=== PATIENT | female | born 1965 | race Caucasian/White ===

== ENCOUNTER 2017-02-18 21:06 | Emergency (ER) | payer SELFPAY ==
[2017-02-18 22:16] LABS: #Basophils 0.1 thou/uL (0.0-0.2); #Eosinphils 0.2 thou/uL (0.0-0.7); #Lymphocytes 2.4 thou/uL (1.20-3.40); #Monocytes 0.5 thou/uL (0.11-0.59); #Neutrophils 5.6 thou/uL (1.40-6.50); %Basophils 0.9 % (0.0-1.0); %Eosinophils 2.3 % (0.0-10.0); %Lymphocytes 27.6 % (21.0-51.0); %Monocytes 5.9 % (0.0-10.0); %Neutrophils 63.4 % (42.0-75.0); Hemoglobin 13.5 g/dL (12.0-16.0); Mean Corpuscular HGB CONC 33.3 g/dL (32.0-36.0); Mean Corpuscular Hemoglobin 31.4 pg (27.0-31.0); Mean Corpuscular Volume 94.4 fl (81.0-99.0); Mean Platelet Volume 7.4 fL (7.4-10.4); Platelet Count 240 thou/uL (130-400); RBC Distribution Width 11.5 % (11.5-14.5); Red Blood Cell (RBC) Count 4.28 mill/uL (4.20-5.40); White Blood Cell (WBC) Count 8.8 thou/uL (4.8-10.8)
[2017-02-18 22:42] LABS: ALT (SGPT) 16 U/L (8-55); AST (SGOT) 12 U/L (5-34); Albumin 3.9 g/dL (3.5-5.0); Alkaline Phosphatase 80 U/L (40-150); Anion Gap 10 mmol/L (10-20); BUN (Urea Nitrogen) 17 mg/dL (7.0-18.7); Bilirubin, Total 0.4 mg/dL (0.2-1.2); Calc. Creatinine Clearance 0 mL/min (70-130); Calcium 9.8 mg/dL (7.8-10.44); Carbon Dioxide 30 mmol/L (22-29); Chloride 107 mmol/L (98-107); Estimated GFR-MDRD 79; Glucose 105 mg/dL (70-105); Lipase 27 U/L (8-78); Potassium 4.1 mmol/L (3.5-5.1); Protein, Total 6.9 g/dL (6.0-8.3); Sodium 143 mmol/L (136-145)
[2017-02-18 22:45] LABS: CKMB 1.4 ng/mL (0-6.6); Troponin I Less than 0.010 ng/mL (< 0.028)
--- NOTE | 2017-02-18 23:12 | RAD ---
PA AND LATERAL CHEST: History: Cough. FINDINGS: Heart size is normal. The lungs are expanded without focal areas of consolidation, pneumothorax or pl eural effusions. No acute osseous abnormality is seen. IMPRESSION: No radiographic evidence of acute cardiopulmonary process. POS: [facility]
--- NOTE | 2017-02-18 23:18 | CT ---
CT BRAIN WITHOUT CONTRASTS: History: Dizziness, left sided headache, generalized weakness. FINDINGS: No evidence of acute infarct, hemorrhage, midline shift, or abnormal extraaxial fluid collections are seen. Ventricular system is normal and the basilar cisterns are patent. The bony calvarium is intact . The visualized paranasal sinuses and mastoid air cells are well aerated. IMPRESSION: No CT evidence of acute intracranial process. POS: [facility]
[2017-02-19] MEDS ORDERED: Metoclopramide HCl 10 MG/2 ML VIAL ONE (00:37)
[2017-02-19] MEDS ORDERED: diphenhydrAMINE 50 MG/ML VIAL ONE (00:37)
== END 2017-02-19 01:23 | disposition home or self-care (01) ==
LOC: ERS 21:06
DX: H92.03 Otalgia, bilateral (principal); R42 Dizziness and giddiness; R05 Cough; R51 Headache; J45.909 Unspecified asthma, uncomplicated; F31.9 Bipolar disorder, unspecified; Z87.891 Personal history of nicotine dependence
CPT/HCPCS: 70450; 71046; 80053; 82553; 83690; 84484; 85025; 93005; 96361; 96365; 96375; J1200; J2765

== ENCOUNTER 2017-03-30 17:10 | Emergency (ER) | payer SELFPAY ==
--- NOTE | 2017-03-30 20:37 | RAD ---
PORTABLE UPRIGHT FRONTAL CHEST RADIOGRAPH: Date: 03-30-17 Comparison: 02-18-17 History: Flu-like symptoms. FINDINGS: No pneumothorax or pleural fluid. No focal consolidation or alveolar edema. Heart and mediastinal con tours are grossly unremarkable. IMPRESSION: No acute findings. POS: [facility]
== END 2017-03-30 20:39 | disposition home or self-care (01) ==
LOC: ERS 17:10
DX: J20.9 Acute bronchitis, unspecified (principal); E66.9 Obesity, unspecified; J45.909 Unspecified asthma, uncomplicated; F31.9 Bipolar disorder, unspecified; Z87.891 Personal history of nicotine dependence; Z79.899 Other long term (current) drug therapy
CPT/HCPCS: 71045; 87804

== ENCOUNTER 2017-04-04 15:53 | Emergency (ER) | payer SELFPAY ==
[2017-04-04] MEDS ORDERED: Ibuprofen 200 MG TAB ONE (16:17)
[2017-04-04] MEDS ORDERED: Pseudoephedrine HCl 30 MG TAB PO SCH (16:30)
--- NOTE | 2017-04-04 16:45 | RAD ---
PA AND LATERAL VIEWS OF THE CHEST 04/04/17 HISTORY: Cough. FINDINGS: The heart size is normal. The lungs are expanded without focal areas of consolidation, pneumothorax o r pleural effusions. No acute osseous abnormalities are seen. IMPRESSION: No radiographic evidence of acute cardiopulmonary process. POS: [facility]
[2017-04-04] MEDS ORDERED: diphenhydrAMINE 25 MG CAP ONE (16:50)
== END 2017-04-04 17:01 | disposition home or self-care (01) ==
LOC: ERS 15:53
DX: J11.1 Influenza due to unidentified influenza virus with other respiratory manifestations (principal); E66.9 Obesity, unspecified; J45.909 Unspecified asthma, uncomplicated; F31.9 Bipolar disorder, unspecified; Z87.891 Personal history of nicotine dependence; Z79.899 Other long term (current) drug therapy
CPT/HCPCS: 71046; 94640; J7620

== ENCOUNTER 2017-04-11 06:38 | Emergency (ER) | payer SELFPAY ==
[2017-04-11] MEDS ORDERED: Ketorolac Tromethamine 60 MG/2 ML VIAL ONE (08:19)
[2017-04-11] MEDS ORDERED: Acetaminophen 500 MG TAB ONE (09:10)
[2017-04-11 10:22] LABS: Bilirubin Negative (Negative); Blood, Urine Trace (Negative); Clarity CLOUDY (Clear); Glucose, Urine (Dipstick) Negative (Negative); Leukocyte Large (Negative); Nitrite Negative (Negative); Protein, Urine (Dipstick) Negative (Neg-Trace); Specific Gravity, Urine 1.023 (1.002-1.036); Urobilinogen 0.2 mg/dL (0.2-1.0)
[2017-04-11 10:36] LABS: RBC/HPF None Seen HPF (0-3)
[2017-04-11 10:37] LABS: Bacteria/HPF 1+ HPF (None Seen); Hyaline Casts/LPF NONE SEEN LPF (0-3 Hyaline); Squamous Epithelial 0-3 HPF (0-3)
[2017-04-13 01:02] LABS: Chlamydia by PCR Not Detected (NotDetected); GC by PCR Not Detected (NotDetected)
== END 2017-04-11 11:00 | disposition home or self-care (01) ==
LOC: ERS 06:38
DX: A59.01 Trichomonal vulvovaginitis (principal); N39.0 Urinary tract infection, site not specified; E66.9 Obesity, unspecified; J45.909 Unspecified asthma, uncomplicated; F31.9 Bipolar disorder, unspecified; Z87.891 Personal history of nicotine dependence; Z79.51 Long term (current) use of inhaled steroids; Z79.899 Other long term (current) drug therapy
CPT/HCPCS: 81003; 81015; 87081; 87086; 87430; 87480; 87491; 87510; 87591; 87660; 96372; J1885

== ENCOUNTER 2017-04-13 09:34 | Emergency (ER) | payer SELFPAY ==
--- NOTE | 2017-04-13 10:44 | RAD ---
1 VIEW CHEST: Date: 04/13/17 COMPARISON: 03/30/17. HISTORY: Dyspnea and vomiting. FINDINGS: Normal cardiac silhouette. Pulmonary vessels and hilum are normal. No mass. No consolidation. No pneu mothorax or osseous abnormalities. IMPRESSION: No acute cardiopulmonary process. POS: [facility]
[2017-04-13 10:53] LABS: #Eosinphils 0.1 thou/uL (0.0-0.7); #Lymphocytes 1.3 thou/uL (1.20-3.40); #Monocytes 0.4 thou/uL (0.11-0.59); %Basophils 0.1 % (0.0-1.0); %Eosinophils 1.8 % (0.0-10.0); %Lymphocytes 16.5 % (21.0-51.0); %Monocytes 5.6 % (0.0-10.0); Hemoglobin 13.8 g/dL (12.0-16.0); Mean Corpuscular HGB CONC 32.2 g/dL (32.0-36.0); Mean Corpuscular Hemoglobin 30.4 pg (27.0-31.0); Mean Corpuscular Volume 94.5 fl (81.0-99.0); Mean Platelet Volume 7.2 fL (7.4-10.4); Platelet Count 261 thou/uL (130-400); RBC Distribution Width 11.9 % (11.5-14.5); Red Blood Cell (RBC) Count 4.55 mill/uL (4.20-5.40); White Blood Cell (WBC) Count 7.8 thou/uL (4.8-10.8)
[2017-04-13] MEDS ORDERED: Acetaminophen 500 MG TAB ONE (11:09)
[2017-04-13] MEDS ORDERED: Azithromycin 500 MG VIAL ONE (11:09)
[2017-04-13 11:15] LABS: ALT (SGPT) 13 U/L (8-55); AST (SGOT) 13 U/L (5-34); Albumin 4.1 g/dL (3.5-5.0); Alkaline Phosphatase 84 U/L (40-150); Anion Gap 12 mmol/L (10-20); BUN (Urea Nitrogen) 10 mg/dL (7.0-18.7); Bilirubin, Total 0.5 mg/dL (0.2-1.2); Calc. Creatinine Clearance 0 mL/min (70-130); Calcium 9.7 mg/dL (7.8-10.44); Carbon Dioxide 26 mmol/L (22-29); Chloride 105 mmol/L (98-107); Estimated GFR-MDRD 73; Globulin 3.4 g/dL (2.4-3.5); Glucose 100 mg/dL (70-105); Potassium 4.3 mmol/L (3.5-5.1); Protein, Total 7.5 g/dL (6.0-8.3); Sodium 139 mmol/L (136-145)
[2017-04-13] MEDS ORDERED: Ondansetron HCl/PF 4 MG/2 ML Vial ONE (11:41)
[2017-04-13 11:53] LABS: Bilirubin Small (Negative); Blood, Urine Trace (Negative); Clarity CLEAR (Clear); Glucose, Urine (Dipstick) Negative (Negative); Leukocyte Negative (Negative); Nitrite Negative (Negative); Protein, Urine (Dipstick) Negative (Neg-Trace); Specific Gravity, Urine 1.027 (1.002-1.036)
[2017-04-13 11:55] LABS: Bacteria/HPF None Seen HPF (None Seen); Hyaline Casts/LPF 0-3 HYALINE CAST LPF (0-3 Hyaline); Pathc Cast-AUWi Flag 0.13 (0-2.49); Squamous Epithelial 0-3 HPF (0-3); WBC/HPF 0-3 HPF (0-3)
== END 2017-04-13 13:47 | disposition home or self-care (01) ==
LOC: ERS 09:34
DX: J18.9 Pneumonia, unspecified organism (principal); I10 Essential (primary) hypertension; E66.9 Obesity, unspecified; J45.909 Unspecified asthma, uncomplicated; F31.9 Bipolar disorder, unspecified; Z87.891 Personal history of nicotine dependence; Z79.899 Other long term (current) drug therapy
CPT/HCPCS: 36415; 71045; 80053; 81003; 81015; 83605; 85025; 87040; 87086; 94640; 96365; 96375; J0456; J0696; J2405; J7620

== ENCOUNTER 2017-06-04 19:20 | Emergency (ER) | payer SELFPAY ==
--- NOTE | 2017-06-04 19:43 | RAD ---
TWO VIEWS CHEST: 06/04/17 COMPARISON: 04/04/17, 04/13/17. HISTORY: Cough. FINDINGS: Normal cardiac silhouette. Pulmonary vessels and hilum are normal. Costophrenic angles are clear. No mass. No consolidation. No pneumothorax or osseous abnormalities. IMPRESSION: No acute cardiopulmonary process. POS: [facility]
[2017-06-04] MEDS ORDERED: Ibuprofen 800 MG TAB ONE (23:00)
== END 2017-06-04 23:00 | disposition home or self-care (01) ==
LOC: ERS 19:20
DX: J06.9 Acute upper respiratory infection, unspecified (principal); J45.909 Unspecified asthma, uncomplicated; I10 Essential (primary) hypertension; E66.9 Obesity, unspecified; F31.9 Bipolar disorder, unspecified; Z87.891 Personal history of nicotine dependence; Z79.899 Other long term (current) drug therapy
CPT/HCPCS: 71046; 94640; J7620

== ENCOUNTER 2017-06-24 09:34 | Emergency (ER) | payer SELFPAY ==
[2017-06-24 10:36] LABS: #Eosinphils 0.2 thou/uL (0.0-0.7); #Lymphocytes 2.1 thou/uL (1.20-3.40); #Monocytes 0.3 thou/uL (0.11-0.59); #Neutrophils 4.3 thou/uL (1.40-6.50); %Basophils 0.4 % (0.0-1.0); %Eosinophils 2.9 % (0.0-10.0); %Lymphocytes 30.6 % (21.0-51.0); %Monocytes 4.2 % (0.0-10.0); %Neutrophils 61.9 % (42.0-75.0); Hemoglobin 13.9 g/dL (12.0-16.0); Mean Corpuscular HGB CONC 35.2 g/dL (32.0-36.0); Mean Corpuscular Hemoglobin 31.9 pg (27.0-31.0); Mean Corpuscular Volume 90.8 fl (81.0-99.0); Mean Platelet Volume 7.2 fL (7.4-10.4); Platelet Count 215 thou/uL (130-400); RBC Distribution Width 11.7 % (11.5-14.5); Red Blood Cell (RBC) Count 4.36 mill/uL (4.20-5.40); White Blood Cell (WBC) Count 6.9 thou/uL (4.8-10.8)
[2017-06-24 10:49] LABS: ALT (SGPT) 14 U/L (8-55); AST (SGOT) 14 U/L (5-34); Albumin 3.8 g/dL (3.5-5.0); Alkaline Phosphatase 84 U/L (40-150); Anion Gap 9 mmol/L (10-20); BUN (Urea Nitrogen) 17 mg/dL (9.8-20.1); Bilirubin, Total 0.5 mg/dL (0.2-1.2); Calc. Creatinine Clearance 0 mL/min (70-130); Calcium 8.7 mg/dL (7.8-10.44); Carbon Dioxide 23 mmol/L (22-29); Chloride 110 mmol/L (98-107); Estimated GFR-MDRD 81; Globulin 2.8 g/dL (2.4-3.5); Glucose 104 mg/dL (70-105); Lipase 65 U/L (8-78); Potassium 4.1 mmol/L (3.5-5.1); Protein, Total 6.6 g/dL (6.0-8.3); Sodium 138 mmol/L (136-145)
[2017-06-24 10:51] LABS: CKMB 1.4 ng/mL (0-6.6); Troponin I Less than 0.010 ng/mL (< 0.028)
--- NOTE | 2017-06-24 11:30 | RAD ---
PORTABLE CHEST: History: Chest pain. FINDINGS: Lungs appear clear of infiltrate. Heart and mediastinum are unremarkable. Vascular markings are willa l. IMPRESSION: No acute process. POS: [facility]
--- NOTE | 2017-06-27 16:07 | EKG ---
Test Reason : Blood Pressure : / mmHG Vent. Rate : 063 BPM Atrial Rate : 063 BPM P-R Int : 182 ms QRS Dur : 072 ms QT Int : 430 ms P-R-T Axes : 048 002 039 degrees QTc Int : 440 ms Normal sinus rhythm Low voltage QRS Cannot rule out Anterior infarct , age undetermined Abnormal ECG Confirmed by KYRA BROUSSARD ([id number]), social media editor WLIL SHOEMAKER ([id number]) on 06/27/2017 4:07:39 PM Referred By: Confirmed By:KYRA BROUSSARD
== END 2017-06-24 11:22 | disposition home or self-care (01) ==
LOC: ERS 09:34
DX: B34.9 Viral infection, unspecified (principal); I10 Essential (primary) hypertension; J45.909 Unspecified asthma, uncomplicated; E66.9 Obesity, unspecified; F31.9 Bipolar disorder, unspecified; Z87.891 Personal history of nicotine dependence
CPT/HCPCS: 36415; 71045; 80053; 82553; 83690; 84484; 85025; 93005

== ENCOUNTER 2017-07-11 18:15 | Emergency (ER) | payer SELFPAY ==
[2017-07-11] MEDS ORDERED: Ondansetron ODT 8 MG TAB ONE (18:43)
== END 2017-07-11 19:42 | disposition home or self-care (01) ==
LOC: ERS 18:15
DX: J30.2 Other seasonal allergic rhinitis (principal); R11.0 Nausea; I10 Essential (primary) hypertension; E66.9 Obesity, unspecified; J45.909 Unspecified asthma, uncomplicated; F31.9 Bipolar disorder, unspecified; Z87.891 Personal history of nicotine dependence; Z79.899 Other long term (current) drug therapy
CPT/HCPCS: 99283

== ENCOUNTER 2017-07-12 21:25 | Emergency (ER) | payer SELFPAY ==
--- NOTE | 2017-07-12 22:38 | RAD ---
TWO VIEW CHEST: HISTORY: Cough. COMPARISON: 06/04/2017 FINDINGS: The lung solis appear clear. No evidence of infiltrate identified. Heart and mediastinum unremarka ble. IMPRESSION: No acute abnormality identified. POS: [facility]
[2017-07-12] MEDS ORDERED: Ketorolac Tromethamine 30 MG/ML VIAL ONE (23:01)
[2017-07-12] MEDS ORDERED: Dexamethasone 4 mg/ml Vial ONE (23:01)
== END 2017-07-12 23:34 | disposition home or self-care (01) ==
LOC: ERS 21:25
DX: B34.9 Viral infection, unspecified (principal); I10 Essential (primary) hypertension; E66.9 Obesity, unspecified; J45.909 Unspecified asthma, uncomplicated; F31.9 Bipolar disorder, unspecified; Z87.891 Personal history of nicotine dependence
CPT/HCPCS: 71046; 87804; 94640; 96372; J1100; J1885; J7620

== ENCOUNTER 2017-10-25 14:53 | Emergency (ER) | payer SELFPAY ==
--- NOTE | 2017-10-25 15:48 | RAD ---
CHEST TWO VIEWS: 10/25/2017 PROVIDED CLINICAL HISTORY: Cough and congestion. COMPARISON: 07/12/2017 FINDINGS: The cardiac and mediastinal silhouette are within normal limits. The lungs appear clear. No pleural fluid or pneumothorax apparent. IMPRESSION: No evidence for an acute cardiopulmonary process. POS: [facility]
[2017-10-25] MEDS ORDERED: Dexamethasone 4 MG TAB ONE (16:18)
[2017-10-25] MEDS ORDERED: Dexamethasone 10 MG/ML VIAL ONE (16:19)
== END 2017-10-25 17:31 | disposition home or self-care (01) ==
LOC: ERS 14:53
DX: H66.92 Otitis media, unspecified, left ear (principal); J06.9 Acute upper respiratory infection, unspecified; I10 Essential (primary) hypertension; E66.9 Obesity, unspecified; J45.909 Unspecified asthma, uncomplicated; F31.9 Bipolar disorder, unspecified; Z87.891 Personal history of nicotine dependence
CPT/HCPCS: 71046; 94640; J1100; J7620; J8540

== ENCOUNTER 2017-10-28 15:43 | Emergency (ER) | payer SELFPAY | END 2017-10-28 17:39 | disposition home or self-care (01) | LOC: ERS 15:43 | DX: J06.9 Acute upper respiratory infection, unspecified (principal); F31.9 Bipolar disorder, unspecified; I10 Essential (primary) hypertension; J45.909 Unspecified asthma, uncomplicated; E66.9 Obesity, unspecified; Z87.891 Personal history of nicotine dependence | CPT/HCPCS: 99283 ==

== ENCOUNTER 2017-12-05 04:11 | Emergency (ER) | payer SELFPAY ==
--- NOTE | 2017-12-05 11:54 | EKG ---
Test Reason : SOB Blood Pressure : / mmHG Vent. Rate : 078 BPM Atrial Rate : 078 BPM P-R Int : 172 ms QRS Dur : 080 ms QT Int : 392 ms P-R-T Axes : 050 -13 026 degrees QTc Int : 446 ms Normal sinus rhythm Inferior infarct , age undetermined Possible Anterior infarct , age undetermined Abnormal ECG Confirmed by LIVIER GRADY DO ([id number]), news video editor WILL SHOEMAKER ([id number]) on 12/05/2017 11:54:16 AM Referred By: Confirmed By:LIVIER GRADY DO
== END 2017-12-05 07:20 | disposition home or self-care (01) ==
LOC: ERS 04:11
DX: J06.9 Acute upper respiratory infection, unspecified (principal); I10 Essential (primary) hypertension; F31.9 Bipolar disorder, unspecified; Z87.891 Personal history of nicotine dependence; Z79.899 Other long term (current) drug therapy
CPT/HCPCS: 87804; 93005

== ENCOUNTER 2018-01-16 12:17 | Emergency (ER) | payer SELFPAY ==
--- NOTE | 2018-01-16 13:32 | RAD ---
PORTABLE CHEST: DATE: 01/16/2018. PROVIDED CLINICAL HISTORY: Chest pain. FINDINGS: Comparison 06/24/2017. Cardiac and mediastinal silhouette is unchanged in appearance. No focal consolidation, pleural fluid , or pneumothorax apparent. IMPRESSION: No evidence for an acute cardiopulmonary process. POS: [facility]
[2018-01-16 13:37] LABS: #Eosinphils 0.2 thou/uL (0.0-0.7); #Lymphocytes 1.8 thou/uL (1.20-3.40); #Monocytes 0.5 thou/uL (0.11-0.59); #Neutrophils 4.7 thou/uL (1.40-6.50); %Basophils 0.7 % (0.0-1.0); %Eosinophils 2.1 % (0.0-10.0); %Lymphocytes 25.2 % (21.0-51.0); %Monocytes 6.6 % (0.0-10.0); %Neutrophils 65.4 % (42.0-75.0); Hemoglobin 13.2 g/dL (12.0-16.0); Mean Corpuscular HGB CONC 32.4 g/dL (32.0-36.0); Mean Corpuscular Hemoglobin 29.4 pg (27.0-31.0); Mean Corpuscular Volume 90.8 fL (78.0-98.0); Mean Platelet Volume 7.5 fL (7.4-10.4); Platelet Count 246 thou/uL (130-400); RBC Distribution Width 11.8 % (11.5-14.5); Red Blood Cell (RBC) Count 4.49 mill/uL (4.20-5.40); White Blood Cell (WBC) Count 7.1 thou/uL (4.8-10.8)
[2018-01-16 13:46] LABS: ALT (SGPT) 14 U/L (8-55); AST (SGOT) 13 U/L (5-34); Albumin 3.8 g/dL (3.5-5.0); Alkaline Phosphatase 91 U/L (40-150); Anion Gap 12 mmol/L (10-20); BUN (Urea Nitrogen) 12 mg/dL (9.8-20.1); Bilirubin, Total 0.3 mg/dL (0.2-1.2); Calc. Creatinine Clearance 0 mL/min (70-130); Calcium 9.8 mg/dL (7.8-10.44); Carbon Dioxide 23 mmol/L (22-29); Chloride 108 mmol/L (98-107); Estimated GFR-MDRD 78; Globulin 3.2 g/dL (2.4-3.5); Glucose 116 mg/dL (70-105); Potassium 4.3 mmol/L (3.5-5.1); Sodium 139 mmol/L (136-145)
== END 2018-01-16 14:45 | disposition home or self-care (01) ==
LOC: ERS 12:17
DX: B34.9 Viral infection, unspecified (principal); I10 Essential (primary) hypertension; E66.9 Obesity, unspecified; J45.909 Unspecified asthma, uncomplicated; F31.9 Bipolar disorder, unspecified; Z87.891 Personal history of nicotine dependence; Z79.899 Other long term (current) drug therapy
CPT/HCPCS: 71045; 80053; 84484; 85025; 87804; 93005; 94640; J7620

== ENCOUNTER 2018-02-19 09:09 | Emergency (ER) | payer SELFPAY | END 2018-02-19 10:25 | disposition home or self-care (01) | LOC: ERS 09:09 | DX: S39.012A Strain of muscle, fascia and tendon of lower back, initial encounter (principal); F31.9 Bipolar disorder, unspecified; E66.9 Obesity, unspecified; J45.909 Unspecified asthma, uncomplicated; I10 Essential (primary) hypertension; Z87.891 Personal history of nicotine dependence; X58.XXXA Exposure to other specified factors, initial encounter | CPT/HCPCS: 99283 ==

== ENCOUNTER 2018-06-17 08:03 | Emergency (ER) | payer SELFPAY | END 2018-06-17 11:14 | disposition home or self-care (01) | LOC: ERS 08:03 | DX: R05 Cough (principal); F31.9 Bipolar disorder, unspecified; I10 Essential (primary) hypertension; J45.909 Unspecified asthma, uncomplicated; E66.9 Obesity, unspecified; Z87.891 Personal history of nicotine dependence | CPT/HCPCS: 87804; 99281 ==

== ENCOUNTER 2018-07-09 08:04 | Emergency (ER) | payer SELFPAY | END 2018-07-09 08:31 | disposition home or self-care (01) | LOC: ERS 08:04 | DX: H57.89 Other specified disorders of eye and adnexa (principal); I10 Essential (primary) hypertension; E66.9 Obesity, unspecified; J45.909 Unspecified asthma, uncomplicated; F31.9 Bipolar disorder, unspecified; Z87.891 Personal history of nicotine dependence | CPT/HCPCS: 99281 ==

== ENCOUNTER 2019-01-30 06:49 | Emergency (ER) | payer SELFPAY ==
--- NOTE | 2019-01-30 07:47 | RAD ---
EXAM: XR Ribs Rt>= 2 View W/PA CXR PROVIDED CLINICAL HISTORY: Injury COMPARISON: 01/16/2018 FINDINGS: Cardiac and mediastinal silhouette is within normal limits. Lungs appear clear. No evidence for displ aced right-sided rib fracture. No evidence for pleural fluid or pneumothorax. IMPRESSION: No evidence for an acute process.
== END 2019-01-30 07:58 | disposition home or self-care (01) ==
LOC: ERS 06:49
DX: S20.219A Contusion of unspecified front wall of thorax, initial encounter (principal); I10 Essential (primary) hypertension; E66.9 Obesity, unspecified; J45.909 Unspecified asthma, uncomplicated; F31.9 Bipolar disorder, unspecified; Z87.891 Personal history of nicotine dependence; Z79.899 Other long term (current) drug therapy; W01.0XXA Fall on same level from slipping, tripping and stumbling without subsequent striking against object, initial encounter

== ENCOUNTER 2019-08-05 21:01 | Emergency (ER) | payer OTHER, SELFPAY ==
--- NOTE | 2019-08-05 21:59 | RAD ---
Chest AP view INDICATION: Cough with subjective fever, generalized weakness, headache and sore throat; evaluation f or Covid infection COMPARISON: January 16, 2018 FINDINGS: Lungs: The lungs are clear Cardiac silhouette: The cardiomediastinal silhouette appears within normal limits. Pulmonary vasculature: Normal Pleural spaces: No pleural effusion or pneumothorax is demonstrated. Upper abdomen: No abnormality seen. Osseous structures: No acute osseous abnormality. Additional findings: None. IMPRESSION: No acute cardiopulmonary abnormality.
== END 2019-08-05 23:17 | disposition home or self-care (01) ==
LOC: ERS 21:01
DX: U07.1 COVID-19 (principal); R53.83 Other fatigue; R05 Cough; R19.7 Diarrhea, unspecified; R11.0 Nausea; R53.81 Other malaise; I10 Essential (primary) hypertension; J45.909 Unspecified asthma, uncomplicated; E66.9 Obesity, unspecified; F31.9 Bipolar disorder, unspecified; Z79.899 Other long term (current) drug therapy; F17.200 Nicotine dependence, unspecified, uncomplicated
CPT/HCPCS: 71045; 87635; U0003

== ENCOUNTER 2019-08-20 09:52 | Emergency (ER) | payer OTHER, SELFPAY ==
[2019-08-21 12:33] LABS: SARS-CoV-2 MS2 Positive; SARS-CoV-2 N Gene Positive; SARS-CoV-2 S Gene Positive; SARS-CoV-2 orf1ab Positive
== END 2019-08-20 10:28 | disposition home or self-care (01) ==
LOC: ERS 09:52
DX: U07.1 COVID-19 (principal); I10 Essential (primary) hypertension; J45.909 Unspecified asthma, uncomplicated; F17.210 Nicotine dependence, cigarettes, uncomplicated
CPT/HCPCS: 87635; 99283; U0003

== ENCOUNTER 2019-09-03 10:11 | Emergency (ER) | payer OTHER, SELFPAY ==
[2019-09-04 12:19] LABS: SARS-CoV-2 MS2 Positive; SARS-CoV-2 N Gene Positive; SARS-CoV-2 S Gene Positive; SARS-CoV-2 by NAA DETECTED (NotDetected); SARS-CoV-2 orf1ab Positive
== END 2019-09-03 10:36 | disposition home or self-care (01) ==
LOC: ERS 10:11
DX: U07.1 COVID-19 (principal); I10 Essential (primary) hypertension; E66.9 Obesity, unspecified; J45.909 Unspecified asthma, uncomplicated; F31.9 Bipolar disorder, unspecified; F17.210 Nicotine dependence, cigarettes, uncomplicated
CPT/HCPCS: 87635; 99283; U0003

== ENCOUNTER 2019-11-16 00:38 | Emergency (ER) | payer SELFPAY ==
[2019-11-16] MEDS ORDERED: Mag-Al 1200 mg/1200 mg/30 ML UDCUP ONE (01:10)
[2019-11-16] MEDS ORDERED: Lidocaine Viscous Sol 2% 15 ml UD Cup ONE (01:10)
[2019-11-16 01:13] LABS: #Basophils 0.1 thou/uL (0.0-0.2); #Eosinphils 0.2 thou/uL (0.0-0.7); #Lymphocytes 2.6 thou/uL (1.20-3.40); #Monocytes 0.4 thou/uL (0.11-0.59); #Neutrophils 5.3 thou/uL (1.40-6.50); %Basophils 0.7 % (0.0-1.0); %Eosinophils 2.1 % (0.0-10.0); %Lymphocytes 30.1 % (21.0-51.0); %Neutrophils 62.1 % (42.0-75.0); Hemoglobin 14.4 g/dL (12.0-16.0); Mean Corpuscular HGB CONC 33.7 g/dL (32.0-36.0); Mean Corpuscular Hemoglobin 31.3 pg (27.0-31.0); Mean Corpuscular Volume 92.9 fL (78.0-98.0); Mean Platelet Volume 8.4 fL (7.4-10.4); Platelet Count 245 thou/uL (130-400); RBC Distribution Width 12.3 % (11.5-14.5); Red Blood Cell (RBC) Count 4.59 mill/uL (4.20-5.40); White Blood Cell (WBC) Count 8.6 thou/uL (4.8-10.8)
[2019-11-16 01:34] LABS: ALT (SGPT) 17 U/L (8-55); AST (SGOT) 20 U/L (5-34); Alkaline Phosphatase 102 U/L (40-110); Anion Gap 13 mmol/L (10-20); BUN (Urea Nitrogen) 13 mg/dL (9.8-20.1); Bilirubin, Total 0.2 mg/dL (0.2-1.2); Calc. Creatinine Clearance 0 mL/min (70-130); Calcium 9.3 mg/dL (7.8-10.44); Carbon Dioxide 27 mmol/L (22-29); Chloride 105 mmol/L (98-107); Estimated GFR-MDRD 63; Globulin 3.1 g/dL (2.4-3.5); Glucose 167 mg/dL (70-105); Lipase 43 U/L (8-78); Potassium 3.8 mmol/L (3.5-5.1); Protein, Total 7.1 g/dL (6.0-8.3); Sodium 141 mmol/L (136-145)
[2019-11-16] MEDS ORDERED: Ondansetron PF 4 MG/2 ML Vial ONE (01:43)
[2019-11-16] MEDS ORDERED: Ketorolac Tromethamine 30 MG/ML VIAL ONE (01:46)
--- NOTE | 2019-11-26 14:20 | EKG ---
Test Reason : Blood Pressure : / mmHG Vent. Rate : 062 BPM Atrial Rate : 062 BPM P-R Int : 170 ms QRS Dur : 078 ms QT Int : 426 ms P-R-T Axes : 038 -15 050 degrees QTc Int : 432 ms Normal sinus rhythm with sinus arrhythmia Cannot rule out Inferior infarct , age undetermined Cannot rule out Anterior infarct , age undetermined Abnormal ECG Confirmed by MEKA CONNOLLY ([id number]), news editor WILL SHOEMAKER ([id number]) on 11/26/2019 2:19:56 PM Referred By: Confirmed By:MEKA CONNOLLY
== END 2019-11-16 03:10 | disposition home or self-care (01) ==
LOC: ERS 00:38
DX: R10.13 Epigastric pain (principal); R11.2 Nausea with vomiting, unspecified; I10 Essential (primary) hypertension; E66.9 Obesity, unspecified; J45.909 Unspecified asthma, uncomplicated; F31.9 Bipolar disorder, unspecified
CPT/HCPCS: 80053; 83690; 85025; 93005; 96374; 96375; J1885; J2405

== ENCOUNTER 2019-11-18 09:03 | Observation (INO) | payer OTHER, SELFPAY ==
[2019-11-18 10:05] LABS: #Eosinphils 0.1 thou/uL (0.0-0.7); #Lymphocytes 1.7 thou/uL (1.20-3.40); #Monocytes 0.8 thou/uL (0.11-0.59); #Neutrophils 11.1 thou/uL (1.40-6.50); %Basophils 0.2 % (0.0-1.0); %Eosinophils 0.7 % (0.0-10.0); %Lymphocytes 12.3 % (21.0-51.0); %Monocytes 5.7 % (0.0-10.0); %Neutrophils 81.1 % (42.0-75.0); Hemoglobin 13.5 g/dL (12.0-16.0); Mean Corpuscular HGB CONC 33.7 g/dL (32.0-36.0); Mean Corpuscular Hemoglobin 31.6 pg (27.0-31.0); Mean Corpuscular Volume 93.7 fL (78.0-98.0); Mean Platelet Volume 8.2 fL (7.4-10.4); Platelet Count 205 thou/uL (130-400); RBC Distribution Width 12.2 % (11.5-14.5); Red Blood Cell (RBC) Count 4.29 mill/uL (4.20-5.40); White Blood Cell (WBC) Count 13.6 thou/uL (4.8-10.8)
[2019-11-18 10:17] LABS: Bilirubin Negative (Negative); Blood, Urine 2+ (Negative); Clarity Clear (Clear); Glucose, Urine (Dipstick) Normal (Negative); Ketone, Urine Negative (Negative); Leukocyte Negative Leu/uL (Negative); Nitrite Negative (Negative); Protein, Urine (Dipstick) 50 mg/dL (Neg-Trace); RBC/HPF 0-3 HPF (0-3); Specific Gravity, Urine 1.031 (1.002-1.036); pH, Urine 5.5 (5.0-9.0)
[2019-11-18 10:19] LABS: Bacteria/HPF 1+ HPF (None Seen)
[2019-11-18 10:27] LABS: ALT (SGPT) 21 U/L (8-55); AST (SGOT) 23 U/L (5-34); Albumin 3.6 g/dL (3.5-5.0); Alkaline Phosphatase 104 U/L (40-110); Anion Gap 13 mmol/L (10-20); BUN (Urea Nitrogen) 11 mg/dL (9.8-20.1); Bilirubin, Total 0.9 mg/dL (0.2-1.2); Calc. Creatinine Clearance 0 mL/min (70-130); Carbon Dioxide 23 mmol/L (22-29); Chloride 103 mmol/L (98-107); Estimated GFR-MDRD 76; Globulin 3.5 g/dL (2.4-3.5); Glucose 101 mg/dL (70-105); Lipase 14 U/L (8-78); Potassium 3.8 mmol/L (3.5-5.1); Protein, Total 7.1 g/dL (6.0-8.3); Sodium 135 mmol/L (136-145)
[2019-11-18] MEDS ORDERED: Ketorolac Tromethamine 30 MG/ML VIAL ONE ×2 (10:36→11:01)
[2019-11-18] MEDS ORDERED: PROPOFOL 200 MG/20 ML VIAL ONE (10:36)
[2019-11-18] MEDS ORDERED: Lidocaine 1% PF 5 ML VIAL ONE (10:36)
[2019-11-18] MEDS ORDERED: Glycopyrrolate 0.2 MG/ML 5 ML SYRINGE ONE (10:36)
[2019-11-18] MEDS ORDERED: Dexamethasone 20 MG/5 ML VIAL ONE (10:36)
[2019-11-18] MEDS ORDERED: Ondansetron PF 4 MG/2 ML Vial ONE ×2 (10:36→11:01)
[2019-11-18] MEDS ORDERED: Rocuronium Bromide 10 MG/ML (10ML VIAL) ONE (10:36)
--- NOTE | 2019-11-18 10:42 | ULT ---
EXAM: US Gallbladder RUQ CLINICAL HISTORY: Epigastric pain. Right upper quadrant pain.. COMPARISON: None. FINDINGS: Pancreas: See head and proximal pancreatic body have a normal echotexture. The remainder the pancrea s is obscured by bowel gas Liver:Hepatic parenchyma has a normal echotexture. No hepatic masses or intrahepatic biliary dilatati on. Right hepatic lobe: 20.9 cm Gallbladder: Bladder wall is thickened. There is pericholecystic fluid. The sonographic evidence of c holelithiasis. Gallbladder is distended. Roper's sign:Positive Portal Vein: Patent. Appropriate directional flow Bile ducts: 0.7 cm common bile duct diameter Right kidney: No hydronephrosis. Right kidney measures 11.7 cm in length. IMPRESSION: 1. Sonographic evidence of cholelithiasis and cholecystitis. 2. Prominent common bile duct. Correlate for choledocholithiasis. 3. Mild hepatomegaly
[2019-11-18] MEDS ORDERED: Dicyclomine 20 MG TAB ONE (11:01)
[2019-11-18] MEDS ORDERED: Fentanyl 100 MCG/2 ML VIAL ONE ×3 (11:01→17:43)
[2019-11-18 11:18] LABS: INR-International Normal Ratio 1.1; Prothrombin Time 14.9 sec (12.0-14.7)
[2019-11-18 11:19] LABS: PTT 36.2 sec (22.9-36.1)
--- NOTE | 2019-11-18 11:53 | RAD ---
PORTABLE CHEST 1 VIEW: Date: 11/18/2019 Time: 1143 hours HISTORY: Patient is COVID-positive and has abdominal pain. Preoperative evaluation. COMPARISON: 08/05/2019. FINDINGS: The heart size is normal. No lobar consolidation, pneumothoraces, or pleural effusions are seen. Aort a is tortuous. IMPRESSION: No acute process. POS: [facility]
[2019-11-18] MEDS ORDERED: Cefepime 2 GM VIAL ONE (11:59)
[2019-11-18] MEDS ORDERED: metroNIDAZOLE 500 MG/100 ML BAG ONE (12:23)
[2019-11-18] MEDS ORDERED: metroNIDAZOLE 500 MG in Premix Bag 1 BAG IVPB SCH (12:45)
[2019-11-18] MEDS ORDERED: Iothalamate Meglumine 60% 50 ML VIAL FS ONE (15:15)
[2019-11-18] MEDS ORDERED: Bupivacaine/Epinephrine 0.25% 30 ML VIAL ONE (15:15)
[2019-11-18] MEDS ORDERED: Ondansetron HCl/PF 4 MG/2 ML Vial IVP PRN (17:04)
[2019-11-18] MEDS ORDERED: Acetaminophen 325 MG TAB PO PRN (17:10)
[2019-11-18] MEDS ORDERED: Dextrose 50% Abboject 50 ML SYRINGE SLOW IVP PRN (17:10)
[2019-11-18] MEDS ORDERED: Calcium Carbonate 500 MG ChewTAB PO PRN (17:10)
[2019-11-18] MEDS ORDERED: traMADol HCl 50 MG TAB PO PRN (17:10)
[2019-11-18] MEDS ORDERED: Morphine 2 MG/ML VIAL SLOW IVP PRN (17:10)
[2019-11-18] MEDS ORDERED: Morphine 4 MG/ML VIAL SLOW IVP PRN (17:10)
[2019-11-18] MEDS ORDERED: Mag-Al 1200 mg/1200 mg/30 ML UDCUP PO PRN (17:10)
[2019-11-18] MEDS ORDERED: hydrALAZINE 20 MG/ML VIAL SLOW IVP PRN (17:10)
[2019-11-18] MEDS ORDERED: Dextrose 5% in Water 1,000 ML IV PRN (17:10)
[2019-11-18] MEDS ORDERED: Ondansetron PF 4 MG/2 ML Vial IVP PRN (17:10)
[2019-11-18] MEDS ORDERED: Promethazine HCl 25 MG/ML VIAL IM PRN (17:10)
[2019-11-18] MEDS: D5 1/2 NS w/20 mEq KCL 1,000 ML IV SCH (20:29)
[2019-11-18] MEDS: traMADol HCl 50 MG TAB PO PRN (20:34)
[2019-11-18] MEDS: Famotidine 20 MG TAB PO SCH (20:34)
[2019-11-18] MEDS: Famotidine/PF 20 mg/2ml Vial SLOW IVP SCH (20:35)
[2019-11-18 20:36] VITALS: BMI 40.8
[2019-11-18] MEDS: Meropenem 2 GM in Sodium Chloride 0.9% 100 ML IVPB SCH (22:26)
--- NOTE | 2019-11-18 23:03 | HP ---
CHIEF COMPLAINT: Fever, right upper quadrant pain. HISTORY OF PRESENT ILLNESS: This is a 54-year-old female who had originally been seen in the ER with epigastric pain, had a GI cocktail and her symptoms mildly improved. She then went to her primary care doctor today for followup and was found to be febrile and her pain was more right upper quadrant, sharp, 8/10, radiates around to the right back, associated with fever to 101. No other symptoms of respiratory disease. This was associated with nausea and anorexia. No history of previous jaundice, pancreatitis, or known gallstones. Her ultrasound did show gallstones, cholecystitis, and dilated common bile duct. Her bilirubin was normal. PAST MEDICAL HISTORY: She says she has hypertension but not on any medication. SURGICAL HISTORY: . MEDICINES: None. ALLERGIES: CODEINE, PENICILLIN. SOCIAL HISTORY: No smoking or alcohol or other drugs. REVIEW OF SYSTEMS: 10-system review of systems is otherwise negative unless described above. PHYSICAL EXAMINATION: HEENT: Sclerae anicteric. Oropharynx clear. NECK: No lymphadenopathy. CHEST: Clear. HEART: Regular rate. ABDOMEN: Soft. Tender right upper quadrant with localized guarding. No rebound. No abdominal hernias. EXTREMITIES: No ischemic edema to extremities. ASSESSMENT: Acute cholecystitis. PLAN: Laparoscopic cholecystectomy with intraoperative cholangiogram. Risks, benefits, and alternatives discussed. She gives consent. We will do this today. Job ID: [id number]
--- NOTE | 2019-11-18 23:43 | OP ---
DATE OF PROCEDURE: 11/18/2019 PREOPERATIVE DIAGNOSIS: Acute cholecystitis. POSTOPERATIVE DIAGNOSIS: Acute cholecystitis. PROCEDURE PERFORMED: Laparoscopic cholecystectomy with intraoperative cholangiogram . ANESTHESIA: General. ESTIMATED BLOOD LOSS: None. COMPLICATIONS: None. SPECIMEN: Gallbladder. FINDINGS: Normal cholangiogram. TECHNIQUE: The patient was taken to the operating room and laid supine on the operating room table. After general anesthetic was obtained, the abdomen was prepped and draped in a sterile fashion. A straight incision was made above the umbilicus. Cautery was used to dissect down to and score the fascia. Abdominal cavity was entered bluntly using a Valeri clamp. Holding stitch of PDS was placed on each side of the fascia. Andrade trocar was placed. High-flow pneumoperitoneum was obtained. A subxiphoid and two right upper quadrant 5 mm ports were all placed. The gallbladder was retracted and the peritoneum was taken down. There were severe cholecystitis changes. The gallbladder was decompressed to allow to be grabbed and retracted. Dissection was taken down to the cystic duct and cystic artery. Two clips were placed proximally in the cystic artery, one distally, was cut using laparoscopic scissors. A clip was placed on the cystic duct. A small ductotomy was made just proximal to that. A cholangiocatheter was brought in and a cholangiogram was performed, which shows good contrast flow into the duodenum without obstruction. Cholangiocatheter was removed. The cystic duct was so swollen that it required a PDS Endoloop suture to pursestring close. A cautery was then used to dissect the gallbladder from the gallbladder fossa. The gallbladder was placed in an EndoCatch bag and brought out through the Andrade. A 19 round drain was left in the liver bed and brought out through the right upper quadrant incision. There was no bleeding in the abdomen. The right upper quadrant was irrigated. All port sites were infiltrated using local anesthetic. All ports were removed under camera visualization. Pneumoperitoneum was let down. PDS was used to close the fascial defect above the umbilicus. All incisions were irrigated and closed using 4-0 Monocryl and Dermabond. The patient was sent to Recovery in stable condition. All instrument counts, needle counts, and lap counts were correct. Job ID: [id number]
[2019-11-19] MEDS: traMADol HCl 50 MG TAB PO PRN (03:11)
[2019-11-19] MEDS: Meropenem 2 GM in Sodium Chloride 0.9% 100 ML IVPB SCH (05:46)
[2019-11-19] MEDS: D5 1/2 NS w/20 mEq KCL 1,000 ML IV SCH (07:14)
[2019-11-19] MEDS: Famotidine/PF 20 mg/2ml Vial SLOW IVP SCH (08:03)
[2019-11-19] MEDS: Famotidine 20 MG TAB PO SCH (08:04)
[2019-11-19 12:02] VITALS: BP 110/65; TEMP 98.7
[2019-11-19 15:23] LABS: SARS-CoV-2 MS2 Positive; SARS-CoV-2 N Gene Negative; SARS-CoV-2 S Gene Negative; SARS-CoV-2 by NAA Not Detected (NotDetected); SARS-CoV-2 orf1ab Negative
--- NOTE | 2019-11-20 11:49 | DIS ---
DATE OF ADMISSION: 11/18/2019 DATE OF DISCHARGE: 11/19/2019 ADMIT DIAGNOSIS: Acute cholecystitis. DISCHARGE DIAGNOSIS: Acute cholecystitis. PROCEDURES: Laparoscopic cholecystectomy with drain by Dr. Castro without complication. CONDITION ON DISCHARGE: Improved. STAFF: Faizan Castro MD HOSPITAL COURSE: On postop day 1, the patient is doing well. She is discharged home. She will follow up with Dr. Chávez or Dr. Wilson later in the week for drain removal. Job ID: [id number]
--- NOTE | 2019-11-21 13:38 | RAD ---
OPERATIVE CHOLANGIOGRAM: Date: 11/18/2019 INDICATION: Intraoperative imaging during cholecystectomy and operative cholangiogram procedure. FINDINGS/IMPRESSION: A single fluoroscopic image is presented from the OR. This image shows opacification of the common bile duct. Contrast is seen into the duodenum. No fillin g defect identified. POS: [facility]
== END 2019-11-19 11:40 | disposition home or self-care (01) ==
LOC: ERS 09:03 → SDC 13:21 → SURG A 19:21
PROVIDERS: ADMIT Surgery; ATTEND Surgery
PROC: 0FT44ZZ Resection of Gallbladder, Percutaneous Endoscopic Approach (ICD-10-PCS; principal; 2019-11-19)
PROC: BF121ZZ Fluoroscopy of Gallbladder using Low Osmolar Contrast (ICD-10-PCS; 2019-11-19)
DX: K80.00 Calculus of gallbladder with acute cholecystitis without obstruction (principal); K82.A2 Perforation of gallbladder in cholecystitis; I10 Essential (primary) hypertension; F31.9 Bipolar disorder, unspecified; Z79.899 Other long term (current) drug therapy; Z87.891 Personal history of nicotine dependence; Z88.0 Allergy status to penicillin; Z88.5 Allergy status to narcotic agent; Z91.011 Allergy to milk products; Z20.828 Contact with and (suspected) exposure to other viral communicable diseases
CPT/HCPCS: 36415; 47532; 71045; 76705; 80053; 81003; 81015; 82550; 83690; 84484; 85025; 85610; 85730; 87635; 88304; 93005; 96361; 96365; 96366; 96367; 96368; 96375; G0378; J0692; J1100; J1610; J1885; J2185; J2405; J2704; J3010; J3480; J3490; U0003

== ENCOUNTER 2019-12-12 06:59 | Outpatient (CLI) | payer SELFPAY ==
[2019-12-13 12:10] LABS: SARS-CoV-2 MS2 Positive; SARS-CoV-2 N Gene Negative; SARS-CoV-2 S Gene Negative; SARS-CoV-2 by NAA Not Detected (NotDetected); SARS-CoV-2 orf1ab Negative
== END 2019-12-12 07:00 | disposition home or self-care (01) ==
LOC: LABBT 06:59
PROVIDERS: ATTEND Internal Medicine Gastroenterology
DX: Z20.828 Contact with and (suspected) exposure to other viral communicable diseases (principal)
CPT/HCPCS: 87635; U0003

== ENCOUNTER 2019-12-15 09:10 | Day surgery (SDC) | payer SELFPAY ==
[2019-12-14 11:45] VITALS: BMI 39.6
[2019-12-15] MEDS ORDERED: Indomethacin 50 MG SUPP PR SCH (09:45)
[2019-12-15] MEDS ORDERED: Levofloxacin 500 mg/D5W 100 ml Premix Bag ONE (10:08)
[2019-12-15] MEDS ORDERED: Iothalamate Meglumine 60% 50 ML VIAL FS ONE (10:18)
[2019-12-15 10:19] LABS: #Eosinphils 0.3 thou/uL (0.0-0.7); #Lymphocytes 2.3 thou/uL (1.20-3.40); #Monocytes 0.5 thou/uL (0.11-0.59); %Basophils 0.5 % (0.0-1.0); %Eosinophils 3.4 % (0.0-10.0); %Lymphocytes 28.2 % (21.0-51.0); %Monocytes 6.3 % (0.0-10.0); %Neutrophils 61.8 % (42.0-75.0); Hemoglobin 12.7 g/dL (12.0-16.0); Mean Corpuscular HGB CONC 33.4 g/dL (32.0-36.0); Mean Corpuscular Hemoglobin 30.9 pg (27.0-31.0); Mean Corpuscular Volume 92.3 fL (78.0-98.0); Mean Platelet Volume 7.6 fL (7.4-10.4); Platelet Count 271 thou/uL (130-400); RBC Distribution Width 12.3 % (11.5-14.5); Red Blood Cell (RBC) Count 4.11 mill/uL (4.20-5.40); White Blood Cell (WBC) Count 8.1 thou/uL (4.8-10.8)
[2019-12-15] MEDS ORDERED: Indomethacin 50 MG SUPP ONE (10:19)
[2019-12-15] MEDS ORDERED: Fentanyl 100 MCG/2 ML VIAL ONE (10:35)
[2019-12-15 10:43] LABS: Prothrombin Time 12.9 sec (12.0-14.7)
[2019-12-15] MEDS ORDERED: Rocuronium Bromide 10 MG/ML (10ML VIAL) ONE (11:09)
[2019-12-15] MEDS ORDERED: Glycopyrrolate 0.2 MG/ML 5 ML SYRINGE ONE (11:09)
[2019-12-15] MEDS ORDERED: Dexamethasone 20 MG/5 ML VIAL ONE (11:09)
[2019-12-15] MEDS ORDERED: Ondansetron PF 4 MG/2 ML Vial ONE (11:09)
[2019-12-15] MEDS ORDERED: Lidocaine 1% PF 5 ML VIAL ONE (11:09)
[2019-12-15] MEDS ORDERED: PROPOFOL 200 MG/20 ML VIAL ONE (11:09)
[2019-12-15 11:20] LABS: ALT (SGPT) 22 U/L (8-55); AST (SGOT) 16 U/L (5-34); Albumin 3.7 g/dL (3.5-5.0); Alkaline Phosphatase 99 U/L (40-110); Anion Gap 13 mmol/L (10-20); BUN (Urea Nitrogen) 10 mg/dL (9.8-20.1); Bilirubin, Total 0.4 mg/dL (0.2-1.2); Calc. Creatinine Clearance 146 mL/min (70-130); Calcium 9.4 mg/dL (7.8-10.44); Carbon Dioxide 29 mmol/L (22-29); Chloride 108 mmol/L (98-107); Estimated GFR-MDRD 72; Globulin 3.2 g/dL (2.4-3.5); Glucose 107 mg/dL (70-105); Potassium 4.7 mmol/L (3.5-5.1); Protein, Total 6.9 g/dL (6.0-8.3); Sodium 145 mmol/L (136-145)
--- NOTE | 2019-12-15 12:44 | OP ---
DATE OF PROCEDURE: 12/15/2019 PREPROCEDURE DIAGNOSIS: Bile leak, status post cholecystectomy on 11/18/2019 with continued biliary drainage through the MARIFER. PROCEDURE PERFORMED: Endoscopic retrograde cholangiopancreatography with sphincterotomy and stent placement. ANESTHESIA: General endotracheal anesthesia, Indocin suppository and IV fluids were used to reduce risk of post ERCP pancreatitis. POSTPROCEDURE DIAGNOSES: 1. Two ampulla seen in close proximity and the second portion of duodenum. This is an anatomic variant. The more distal of the two had bile protruding from it, was cannulated the common bile duct with no filling defects were noted, but a bile leak was noted from the cystic duct stump region. 2. Sphincterotomy was performed and 11.5-Slovenian 7 cm stent was placed across the ampulla with good drainage of bile both endoscopically and radiographically. RECOMMENDATIONS: Repeat ERCP in 4 to 6 weeks to remove stent, ensure bile leak is closed. DESCRIPTION OF PROCEDURE: After the patient was informed of the risks, benefits, and possible complications of endoscopy including perforation, bleeding, reaction to medication, and aspiration, informed consent was obtained. The patient was brought to endoscopy suite, where she was sedated in gradual fashion. Once she was comfortable, a bite block was placed in the incisural orifice. She was placed in a prone position once the airway was secured. The side-viewing duodenoscope was advanced through the bite block, the esophagus, stomach, and second and third portions of the duodenum with the ampulla was brought into view. There was a little bit of anatomic variant with two ampulla noted, the distal of the two had bile coming from it and I suspect it was the ampulla of Vater. Free cannulation was obtained and wire was advanced in the path of the expected common duct. Cholangiogram showed a wisp of leak at the cystic duct stump region. There were no filling defects seen. A sphincterotomy was performed over a guidewire with good hemostasis. Exchange was made and an 11.5-Slovenian 7 cm stent was placed across the ampulla with good positioning radiographically and endoscopically. Photo documentation was obtained. There was good drainage of bile both endoscopically and radiographically. The scope was removed. The patient was brought to recovery room in stable condition. Job ID: [id number]
--- NOTE | 2019-12-15 13:27 | RAD ---
ERCP: DATE: 12/15/2019 Four fluoroscopic images obtained during ERCP procedure. INDICATION: Imaging during ERCP. Postop bile leak given as reason. FINDINGS/IMPRESSION: These images demonstrate opacification of the common bile duct. Final image shows evidence of a commo n bile duct stent in place. POS: [facility]
== END 2019-12-15 13:45 | disposition home or self-care (01) ==
LOC: SDC 09:10
PROVIDERS: ATTEND Internal Medicine Gastroenterology
PROC: 0F798DZ Dilation of Common Bile Duct with Intraluminal Device, Via Natural or Artificial Opening Endoscopic (ICD-10-PCS; principal; 2019-12-15)
DX: K83.2 Perforation of bile duct (principal); Z88.0 Allergy status to penicillin; Z88.5 Allergy status to narcotic agent; Z91.011 Allergy to milk products; Z91.038 Other insect allergy status
CPT/HCPCS: 36415; 74330; 80053; 85025; 85610; J1100; J1956; J2405; J2704; J3010

== ENCOUNTER 2020-01-19 06:36 | Outpatient (CLI) | payer OTHER ==
[2020-01-20 07:01] LABS: SARS-CoV-2 MS2 Positive; SARS-CoV-2 N Gene Negative; SARS-CoV-2 S Gene Negative; SARS-CoV-2 by NAA Not Detected (NotDetected); SARS-CoV-2 orf1ab Negative
== END 2020-01-19 06:37 | disposition home or self-care (01) ==
LOC: LABBT 06:36
PROVIDERS: ATTEND Internal Medicine Gastroenterology
DX: K83.2 Perforation of bile duct (principal); Z20.828 Contact with and (suspected) exposure to other viral communicable diseases
CPT/HCPCS: 87635; U0003

== ENCOUNTER 2020-01-24 08:55 | Day surgery (SDC) | payer SELFPAY ==
[2020-01-23 10:16] VITALS: BMI 39.9
[2020-01-24] MEDS ORDERED: Levofloxacin 500 mg/D5W 100 ml Premix Bag ONE (09:57)
[2020-01-24] MEDS ORDERED: Dexamethasone 20 MG/5 ML VIAL ONE (10:13)
[2020-01-24] MEDS ORDERED: Lidocaine 1% PF 5 ML VIAL ONE (10:13)
[2020-01-24] MEDS ORDERED: PROPOFOL 200 MG/20 ML VIAL ONE (10:13)
[2020-01-24] MEDS ORDERED: Ondansetron PF 4 MG/2 ML Vial ONE (10:13)
[2020-01-24] MEDS ORDERED: Iothalamate Meglumine 60% 50 ML VIAL FS ONE (10:15)
[2020-01-24] MEDS ORDERED: Midazolam HCl 2 mg/2 ml Vial ONE (11:05)
[2020-01-24] MEDS ORDERED: Fentanyl 100 MCG/2 ML VIAL ONE ×2 (11:05→11:28)
--- NOTE | 2020-01-24 12:31 | OP ---
DATE OF PROCEDURE: 01/24/2020 PREPROCEDURE DIAGNOSIS: Bile leak, status post ERCP with stent placement on 01/14/2020. POSTPROCEDURE DIAGNOSES: 1. Bile leak, resolved. Biliary stent removed. 2. Occlusion cholangiogram negative for retained stones, filling defects, or leak. RECOMMENDATIONS: Return to regular diet. Follow up in office as needed. ANESTHESIA: TIVA. DESCRIPTION OF PROCEDURE: After the patient was informed of the risks, benefits, and possible complications of endoscopy including perforation, reaction to medications, and aspiration, informed consent was obtained. The patient was brought to endoscopy suite, where she was sedated in gradual fashion. Once she was comfortable, she was intubated and placed in prone position on fluoroscopy table. A bite block was placed in the incisural orifice. The endoscope was advanced into the esophagus, stomach, into second and third portions of duodenum, and the ampulla was brought into view. Stent was noted to be coming from it with flow of clear clean bile. The stent was grasped with a snare and removed. A balloon catheter was advanced through the scope and into the bile duct and inflated. The cholangiogram showed no evidence of filling defects. The duct was swept 3 times and no stones noted, and then occlusion cholangiogram was performed, again with no filling defects, no evidence of persistent leak. The duct was swept one more time and clear drainage of bile was documented both endoscopically and radiographically with fluoroscopic images obtained. Stomach was desufflated. The scope was removed. The patient tolerated the procedure well. There were no complications. Job ID: [id number]
--- NOTE | 2020-01-24 14:16 | RAD ---
EXAM: ERCP HISTORY: Common bile duct stent removal COMPARISON: 12/15/2019 FINDINGS: Limited intraoperative fluoroscopic views were taken during a an ERCP. A stent is seen on the first image. This is removed on the second image and contrast is seen througho ut the common bile duct and duodenum. The common bile duct is normal in caliber without filling defect. No leakage from the common bile duct. No abnormality of the intrahepatic bile ducts. IMPRESSION: Unremarkable ERCP status post stent removal
== END 2020-01-24 14:00 | disposition home or self-care (01) ==
LOC: SDC 08:55
PROVIDERS: ATTEND Internal Medicine Gastroenterology
PROC: 0FPB8DZ Removal of Intraluminal Device from Hepatobiliary Duct, Via Natural or Artificial Opening Endoscopic (ICD-10-PCS; principal; 2020-01-24)
DX: Z46.59 Encounter for fitting and adjustment of other gastrointestinal appliance and device (principal); Z88.0 Allergy status to penicillin; Z88.5 Allergy status to narcotic agent; Z91.011 Allergy to milk products; Z91.030 Bee allergy status
CPT/HCPCS: 74330; J1100; J1956; J2250; J2405; J2704; J3010

== ENCOUNTER 2021-02-18 06:06 | Emergency (ER) | payer SELFPAY | END 2021-02-18 06:53 | disposition home or self-care (01) | LOC: ERS 06:06 | DX: B34.9 Viral infection, unspecified (principal); I10 Essential (primary) hypertension; E66.9 Obesity, unspecified; Z87.891 Personal history of nicotine dependence | CPT/HCPCS: 71046 ==

== ENCOUNTER 2021-06-12 15:19 | Emergency (ER) | payer SELFPAY ==
[2021-06-13 12:22] LABS: SARS-CoV-2 PCR by NAA Not Detected (NotDetected)
== END 2021-06-12 18:26 | disposition home or self-care (01) ==
LOC: ERS 15:19
DX: J20.9 Acute bronchitis, unspecified (principal); I10 Essential (primary) hypertension; J45.909 Unspecified asthma, uncomplicated; F17.210 Nicotine dependence, cigarettes, uncomplicated; E66.9 Obesity, unspecified; Z20.822 Contact with and (suspected) exposure to COVID-19; Z68.45 Body mass index [BMI] 70 or greater, adult; Z79.899 Other long term (current) drug therapy
CPT/HCPCS: 71045; 87081; 87430; U0003; U0005

== ENCOUNTER 2023-01-09 14:39 | Emergency (ER) | payer SELFPAY ==
[2023-01-09 15:56] LABS: SARS-CoV-2 NAA Rapid Test Not Detected (NotDetected)
[2023-01-09] MEDS ORDERED: methylPREDNISolone Sod Succ/PF 125 MG/2 ML VIAL ONE (16:25)
== END 2023-01-09 16:30 | disposition home or self-care (01) ==
LOC: ERS 14:39
DX: J20.9 Acute bronchitis, unspecified (principal); J00 Acute nasopharyngitis [common cold]; I10 Essential (primary) hypertension; F17.210 Nicotine dependence, cigarettes, uncomplicated; J45.909 Unspecified asthma, uncomplicated; Z79.51 Long term (current) use of inhaled steroids; E78.00 Pure hypercholesterolemia, unspecified; Z79.890 Hormone replacement therapy; Z20.822 Contact with and (suspected) exposure to COVID-19
CPT/HCPCS: 96372; 99283; J2930